=== PATIENT | male | born 1970 | race American Indian/Alaskan Native ===

== ENCOUNTER 2017-07-05 11:32 | Emergency (ER) | payer OTHER ==
[2017-07-05 22:35] VITALS: BP 153/96
[2017-07-05] MEDS ORDERED: TORADOL IM ONE (23:24)
--- NOTE | 2017-07-05 23:40 | Emergency Department Report ---
HPI - General Chief Complaint: Extremity Problem,Nontraumatic Time Seen by Provider: 07/05/17 22:25 - HPI HPI: The patient is a 47-year-old male who presents for evaluation of right leg pain. The patient reports posterior right leg pain for the past 4 days, currently 7/10 in severity, sharp in quality, radiating distally down the leg to the sole of the foot, exacerbated with movement or ambulation. The patient denies trauma to the leg or back, back pain, fever, chills, night sweats, paresthesias, motor deficit, redness of the leg, swelling of the leg. ED Past Medical Hx - Past Medical History Previous Medical History?: No - Surgical History Past Surgical History?: Yes Additional Surgical History: hemmorhoidectomy - Social History Smoking Status: Never Smoker Substance Use Type: Alcohol, Marijuana - Medications Home Medications: Home Medications Medication Instructions Recorded Confirmed Last Taken Type HYDROcodone/APAP 7.5-325 [[place] 1 each PO Q8HR PRN #15 tablet 07/05/17 Unknown Rx 7.5-325 mg TAB] Ibuprofen [Motrin] 800 mg PO Q8HR PRN #15 tablet 07/05/17 Unknown Rx ED Review of Systems ROS: Stated complaint: R LEG PAIN AND TINGLING X3 DAYS Other details as noted in HPI Constitutional: denies: fever ENT: denies: throat or neck pain Respiratory: denies: cough, shortness of breath Cardiovascular: denies: chest pain Endocrine: denies unexplained weight loss or gain Gastrointestinal: denies: abdominal pain, nausea Genitourinary: denies: dysuria Musculoskeletal: Patient reports leg and foot pain. Denies: leg swelling Skin: denies: rash Neurological: denies: headache Hematological/Lymphatic: denies: easy bleeding or easy bruising Psych: denies sadness or hopelessness Physical Exam - Physical Exam Vital Signs: Vital Signs 07/05/17 07/05/17 13:10 22:35 Temperature 98.6 F Pulse Rate 83 66 Respiratory 20 18 Rate Blood Pressure 160/70 Blood Pressure 153/96 [Left] O2 Sat by Pulse 98 100 Oximetry Physical Exam: General: well-nourished, well-developed, no acute distress Head: Normocephalic, atraumatic Eyes: normal sclera ENT: Mucous membranes are pink and moist Neck: trachea midline, neck supple, No neck stiffness, no cervical adenopathy Respiratory: Breath sounds equal bilaterally, no wheezing, rales, or rhonchi Cardio: S1 and S2 present, no murmurs, rubs, gallops, capillary refill is brisk Abdomen: Normoactive bowel sounds, soft abdomen, no rigidity, no guarding or rebound tenderness Musc: Tense to palpation present to the posterior right thigh and calf muscle, no swelling of the leg, no ecchymosis, no erythema, warmth, or fluctuance, No pitting edema Skin: No rash Neuro: no facial drooping, normal speech Psych: Normal affect ED Course Vital Signs 07/05/17 07/05/17 13:10 22:35 Temperature 98.6 F Pulse Rate 83 66 Respiratory 20 18 Rate Blood Pressure 160/70 Blood Pressure 153/96 [Left] O2 Sat by Pulse 98 100 Oximetry ED Medical Decision Making - Medical Decision Making The patient was seen and examined by myself. The patient is placed on a guard entrance registrar and continuous pulse ox. On initial evaluation, the patient was found to be in no distress. Evaluation orders were placed. The patient is given IM dose of Toradol for his pain. Doppler ultrasound of the right leg is negative for DVT. The patient was reevaluated and reported that their symptoms were markedly improved. The patient is stable for discharge with outpatient follow-up. The patient is given follow-up and return instructions. The patient expressed understanding and agreed with the plan. The patient is discharged in stable condition. Critical care attestation.: If time is entered above; I have spent that time in minutes in the direct care of this critically ill patient, excluding procedure time. ED Disposition Clinical Impression: Left leg pain, Sciatic leg pain Peripheral neuropathy Qualifiers: Peripheral neuropathy type: mononeuropathy, other Qualified Code(s): G58.8 - Other specified mononeuropathies Disposition: TO HOME OR SELFCARE Is pt being admited?: No Does the pt Need Aspirin: No Condition: Stable Instructions: Musculoskeletal Pain (ED), Sciatica (ED), Muscle Strain (ED) Referrals: PRIMARY CARE, [Primary Care Provider] - 3-5 Days CECI HURLEY MD [Staff Physician] - 3-5 Days Time of Disposition: 23:24
== END 2017-07-05 23:53 | disposition home or self-care (01) ==
LOC: ED 11:32
DX: M79.604 Pain in right leg (principal)
CPT/HCPCS: 93971; 96372; 99283; J1885